=== PATIENT | male | born 1985 | race Caucasian/White ===

== ENCOUNTER 2017-08-23 22:00 | Inpatient (IN) | payer MEDICAID ==
[~2017-08-23] VITALS: Ht 172.7 cm; Wt 68.9 kg
[2017-08-23] MEDS ORDERED: LITH600 PO (22:28)
[2017-08-23 23:55] LABS: BASOPHILS % (AUTO) 0.8 % (0.0-2.0); EOSINOPHILS % (AUTO) 1.6 % (1.0-6.0); HEMATOCRIT 42.9 % (41-53); LYMPHOCYTES # (AUTO) 1.7 K/uL (1.0-4.8); LYMPHOCYTES % (AUTO) 15.7 % (22.0-44.0); MEAN CORPUSCULAR HEMOGLOBIN 30.6 pg (26.0-34.0); MEAN CORPUSCULAR HGB CONC 34.9 G/dL (31.0-37.0); MEAN CORPUSCULAR VOLUME 88 fL (80-100); MONOCYTES # (AUTO) 1.1 K/uL (0.1-1.0); MONOCYTES % (AUTO) 10.2 % (2.0-9.0); NEUTROPHILS % (AUTO) 71.7 % (40.0-70.0); PLATELET COUNT (AUTO) 291 K/uL (150-450); RED BLOOD CELL COUNT(AUTO) 4.89 MIL/uL (4.50-5.90)
[2017-08-24 00:29] LABS: ANION GAP 3 mmol/L (8-16); CALCIUM, TOTAL 9.1 mg/dL (8.8-10.5); CARBON DIOXIDE 30 mmol/L (22-29); CHLORIDE 105 mmol/L (98-107); CREATININE 0.81 mg/dL (0.60-1.30); GLOMERULAR FILTR. RATE CALC > 60 mL/min (>60); GLUCOSE,RANDOM 112 mg/dL (70-110); POTASSIUM 3.4 mmol/L (3.5-5.1); SODIUM SERUM 138 mmol/L (136-145); UREA NITROGEN, BLOOD 8 mg/dL (7-18)
[2017-08-24 00:33] LABS: AMPHET/METH SCREEN,URINE NEGATIVE (NEGATIVE); BARBITURATE SCREEN, URINE NEGATIVE (NEGATIVE); BENZODIAZEPINES SCREEN,URINE NEGATIVE (NEGATIVE); CANNABINOID SCREEN,URINE POSITIVE (NEGATIVE); COCAINE SCREEN,URINE NEGATIVE (NEGATIVE); METHADONE SCREEN, URINE NEGATIVE (NEGATIVE); OPIATE SCREEN,URINE NEGATIVE (NEGATIVE)
[2017-08-24 00:35] LABS: ALANINE AMINOTRANSFERASE 41 U/L (12-78); ALBUMIN 3.8 g/dL (3.4-5.0); ALKALINE PHOSPHATASE 61 U/L (46-116); ASPARTATE AMINOTRANSFERASE 27 U/L (15-37); BILIRUBIN,TOTAL 0.3 mg/dL (0.1-1.0); TOTAL PROTEIN, SERUM 7.2 g/dL (6.4-8.2)
[2017-08-24 00:35] LABS: PHENCYCLIDINE SCREEN,URINE NEGATIVE (NEGATIVE)
[2017-08-24 03:29] VITALS: BP 135/91
[2017-08-24] MEDS: LORazepam 2 MG TABLET PO PRN ×2 (04:07→21:03)
[2017-08-24] MEDS ORDERED: POTASSIUM CHLORIDE 20 MEQ ER TABLET PO ONE (06:30)
[2017-08-24 08:13] VITALS: BP 129/80
[2017-08-24] MEDS ORDERED: NICOTINE POLACRILEX 2 MG LOZENGE PO PRN (10:00)
[2017-08-24] MEDS ORDERED: CloNIDine HCL 0.1 MG TABLET PO PRN (15:15)
[2017-08-24] MEDS ORDERED: ALBUTEROL SULFATE HFA 90 MCG/PUFF 8 GM INHALER IH PRN (15:15)
[2017-08-24] MEDS ORDERED: ONDANSETRON HCL 4 MG TABLET PO PRN (15:15)
[2017-08-24] MEDS ORDERED: LOPERAMIDE HCL 2 MG CAPSULE PO PRN (15:15)
[2017-08-24] MEDS ORDERED: DOCUSATE SODIUM 100 MG CAPSULE PO PRN (15:15)
[2017-08-24] MEDS ORDERED: PETROLATUM,WHITE 71 GM JELLY TP PRN (15:15)
[2017-08-24 16:01] VITALS: BP 126/78
[2017-08-24] MEDS ORDERED: LITHIUM CARBONATE 600 MG CAPSULE PO SCH (17:00)
[2017-08-24] MEDS: ZOLPIDEM TARTRATE 10 MG TABLET PO PRN (21:03)
[2017-08-25 03:00] VITALS: BP 118/65
[2017-08-25] MEDS: LORazepam 2 MG TABLET PO PRN (03:29)
[2017-08-25 08:43] VITALS: BP 100/62
[2017-08-25] MEDS: NICOTINE 14 MG/24 HOUR PATCH TD SCH (08:43)
[2017-08-25 08:45] VITALS: BP 121/78
[2017-08-25] MEDS ORDERED: LITHIUM CARBONATE 300 MG CAPSULE PO SCH (09:00)
[2017-08-25 09:30] VITALS: BP 121/80
[2017-08-25 09:33] LABS: HEMOGLOBIN A1C 5.7 % (4.5-6.2)
[2017-08-25] MEDS: IBUPROFEN 400 MG TABLET PO PRN (09:33)
[2017-08-25 09:41] LABS: LITHIUM 0.43 mmol/L (0.60-1.20)
[2017-08-25 09:53] LABS: CHOL/HDL RATIO 3.2 (4.2-7.3); POTASSIUM 3.6 mmol/L (3.5-5.1); THYROID STIMULATING HORMONE 1.72 uIU/mL (0.36-3.74)
[2017-08-25] MEDS ORDERED: LITHIUM CARBONATE 300 MG CAPSULE PO ONE (11:30)
[2017-08-25] MEDS: LITHIUM CARBONATE 600 MG CAPSULE PO SCH (16:02)
[2017-08-25 16:18] VITALS: BP 130/80
[2017-08-25] MEDS: ZOLPIDEM TARTRATE 10 MG TABLET PO PRN (21:14)
[2017-08-26 05:46] VITALS: BP 139/83
[2017-08-26 08:20] VITALS: BP 133/90
[2017-08-26] MEDS: NICOTINE 14 MG/24 HOUR PATCH TD SCH (08:43)
[2017-08-26] MEDS: LITHIUM CARBONATE 600 MG CAPSULE PO SCH ×2 (08:43→17:11)
[2017-08-26] MEDS: LORazepam 2 MG TABLET PO PRN (15:55)
[2017-08-26 16:02] VITALS: BP 136/80
[2017-08-26] MEDS: ZOLPIDEM TARTRATE 10 MG TABLET PO PRN (22:10)
[2017-08-27 00:52] VITALS: BP 117/61
[2017-08-27] MEDS: LORazepam 2 MG TABLET PO PRN ×3 (00:57→21:18)
[2017-08-27 08:03] VITALS: BP 128/80
[2017-08-27] MEDS: LITHIUM CARBONATE 600 MG CAPSULE PO SCH ×2 (08:08→16:22)
[2017-08-27] MEDS: NICOTINE 14 MG/24 HOUR PATCH TD SCH (08:08)
[2017-08-27 16:12] VITALS: BP 130/82
[2017-08-27] MEDS: ZOLPIDEM TARTRATE 10 MG TABLET PO PRN (22:15)
[2017-08-28 04:40] VITALS: BP 124/88
[2017-08-28] MEDS: NICOTINE 14 MG/24 HOUR PATCH TD SCH ×2 (08:11→14:08)
[2017-08-28] MEDS: LITHIUM CARBONATE 600 MG CAPSULE PO SCH ×2 (08:11→16:02)
[2017-08-28 08:36] VITALS: BP 130/82
[2017-08-28 13:56] VITALS: BP 124/81
[2017-08-28] MEDS: IBUPROFEN 400 MG TABLET PO PRN ×2 (13:56→22:12)
[2017-08-28 16:03] VITALS: BP 133/84
[2017-08-28 22:12] VITALS: BP 128/70
[2017-08-28] MEDS: ZOLPIDEM TARTRATE 10 MG TABLET PO PRN (22:12)
[2017-08-29 04:44] VITALS: BP 134/78
[2017-08-29] MEDS: ACETAMINOPHEN 325 MG TABLET PO PRN (04:57)
[2017-08-29] MEDS: NICOTINE 14 MG/24 HOUR PATCH TD SCH (08:31)
[2017-08-29] MEDS: IBUPROFEN 400 MG TABLET PO PRN ×2 (08:31→16:33)
[2017-08-29] MEDS: LITHIUM CARBONATE 600 MG CAPSULE PO SCH (08:32)
[2017-08-29 08:43] VITALS: BP 130/76
[2017-08-29] MEDS: MAGNESIUM HYDROXIDE SUSPENSION 30 ML UDCUP PO PRN (12:44)
[2017-08-29 16:01] VITALS: BP 124/100
[2017-08-29] MEDS: LITHIUM CARBONATE 300 MG CAPSULE PO SCH (16:02)
[2017-08-29 16:31] VITALS: BP 124/84
[2017-08-29] MEDS: ZOLPIDEM TARTRATE 10 MG TABLET PO PRN (21:26)
[2017-08-30 03:42] VITALS: BP 126/88
[2017-08-30] MEDS: IBUPROFEN 400 MG TABLET PO PRN ×2 (04:32→16:54)
[2017-08-30] MEDS: LITHIUM CARBONATE 600 MG CAPSULE PO SCH (08:51)
[2017-08-30] MEDS: NICOTINE 14 MG/24 HOUR PATCH TD SCH (08:52)
[2017-08-30 09:09] VITALS: BP 130/70
[2017-08-30] MEDS: MAG HYDROX/AL HYDROX/SIMETH ES 30 ML SUSPENSION UDCUP PO PRN (12:51)
[2017-08-30] MEDS: LITHIUM CARBONATE 300 MG CAPSULE PO SCH (16:08)
[2017-08-30 16:29] VITALS: BP 135/89
[2017-08-30 16:54] VITALS: BP 122/76
[2017-08-30] MEDS: ZOLPIDEM TARTRATE 10 MG TABLET PO PRN (20:57)
[2017-08-31 01:04] VITALS: BP 113/99
[2017-08-31] MEDS: IBUPROFEN 400 MG TABLET PO PRN ×2 (04:13→16:06)
[2017-08-31] MEDS: ACETAMINOPHEN 325 MG TABLET PO PRN (06:07)
[2017-08-31 08:05] VITALS: BP 124/88
[2017-08-31] MEDS: LITHIUM CARBONATE 600 MG CAPSULE PO SCH (08:24)
[2017-08-31] MEDS: NICOTINE 14 MG/24 HOUR PATCH TD SCH (08:25)
[2017-08-31 16:00] VITALS: BP 132/84
[2017-08-31 16:06] VITALS: BP 132/84
[2017-08-31] MEDS: LITHIUM CARBONATE 300 MG CAPSULE PO SCH (16:06)
[2017-08-31] MEDS: HALOPERIDOL 5 MG TABLET PO PRN (16:06)
[2017-08-31] MEDS: HALOPERIDOL 5 MG TABLET PO SCH (20:36)
[2017-08-31] MEDS: ZOLPIDEM TARTRATE 10 MG TABLET PO PRN (20:37)
[2017-09-01 01:57] VITALS: BP 120/80
[2017-09-01] MEDS: IBUPROFEN 400 MG TABLET PO PRN ×2 (01:57→10:44)
[2017-09-01 08:15] VITALS: BP 133/86
[2017-09-01] MEDS: LITHIUM CARBONATE 600 MG CAPSULE PO SCH (08:32)
[2017-09-01] MEDS: NICOTINE 14 MG/24 HOUR PATCH TD SCH (08:32)
[2017-09-01] MEDS: HALOPERIDOL 5 MG TABLET PO SCH (08:32)
[2017-09-01] MEDS: MAGNESIUM HYDROXIDE SUSPENSION 30 ML UDCUP PO PRN (10:44)
[2017-09-01 10:45] VITALS: BP 133/66
[2017-09-01 11:45] VITALS: BP 133/66
[2017-09-01 16:13] VITALS: BP 121/86
[2017-09-01] MEDS: ACETAMINOPHEN 325 MG TABLET PO PRN (16:13)
[2017-09-01] MEDS: LITHIUM CARBONATE 300 MG CAPSULE PO SCH (16:13)
[2017-09-01 17:13] VITALS: BP 118/89
[2017-09-01] MEDS: MAG HYDROX/AL HYDROX/SIMETH ES 30 ML SUSPENSION UDCUP PO PRN (19:33)
[2017-09-01] MEDS: ZOLPIDEM TARTRATE 10 MG TABLET PO PRN (20:29)
[2017-09-01] MEDS: DIVALPROEX SODIUM 500 MG ER TABLET PO SCH (21:00)
[2017-09-02] VITALS: BP 139/90
[2017-09-02] MEDS: IBUPROFEN 400 MG TABLET PO PRN (00:03)
[2017-09-02] MEDS: HALOPERIDOL 5 MG TABLET PO PRN (01:03)
[2017-09-02] MEDS: NICOTINE 14 MG/24 HOUR PATCH TD SCH (08:46)
[2017-09-02] MEDS: LITHIUM CARBONATE 600 MG CAPSULE PO SCH (08:46)
[2017-09-02 09:14] LABS: BASOPHILS % (AUTO) 0.7 % (0.0-2.0); EOSINOPHILS % (AUTO) 2.8 % (1.0-6.0); HEMATOCRIT 42.8 % (41-53); HEMOGLOBIN 14.7 g/dL (13.5-17.5); LYMPHOCYTES # (AUTO) 1.9 K/uL (1.0-4.8); LYMPHOCYTES % (AUTO) 22.5 % (22.0-44.0); MEAN CORPUSCULAR HEMOGLOBIN 30.2 pg (26.0-34.0); MEAN CORPUSCULAR HGB CONC 34.3 G/dL (31.0-37.0); MEAN CORPUSCULAR VOLUME 88 fL (80-100); MONOCYTES # (AUTO) 0.7 K/uL (0.1-1.0); MONOCYTES % (AUTO) 8.7 % (2.0-9.0); NEUTROPHILS # (AUTO) 5.4 K/uL (1.8-7.7); NEUTROPHILS % (AUTO) 65.3 % (40.0-70.0); PLATELET COUNT (AUTO) 314 K/uL (150-450); RED BLOOD CELL COUNT(AUTO) 4.86 MIL/uL (4.50-5.90)
[2017-09-02] MEDS ORDERED: DIVALPROEX SODIUM 500 MG ER TABLET PO ONE (10:00)
[2017-09-02] MEDS: MAG HYDROX/AL HYDROX/SIMETH ES 30 ML SUSPENSION UDCUP PO PRN (13:07)
[2017-09-02] MEDS: LITHIUM CARBONATE 300 MG CAPSULE PO SCH (16:41)
[2017-09-02 16:46] VITALS: BP 138/90
[2017-09-02] MEDS: MAGNESIUM HYDROXIDE SUSPENSION 30 ML UDCUP PO PRN (19:50)
[2017-09-02] MEDS: DIVALPROEX SODIUM 500 MG ER TABLET PO SCH (20:00)
[2017-09-02] MEDS: ZOLPIDEM TARTRATE 10 MG TABLET PO PRN (20:29)
[2017-09-03 03:50] VITALS: BP 136/89
[2017-09-03] MEDS: IBUPROFEN 400 MG TABLET PO PRN ×2 (05:40→20:18)
[2017-09-03 08:24] VITALS: BP 124/76
[2017-09-03] MEDS: LITHIUM CARBONATE 600 MG CAPSULE PO SCH (09:12)
[2017-09-03] MEDS: NICOTINE 14 MG/24 HOUR PATCH TD SCH (09:12)
[2017-09-03] MEDS: LORazepam 2 MG TABLET PO PRN ×3 (10:22→21:33)
[2017-09-03] MEDS: ACETAMINOPHEN 325 MG TABLET PO PRN (10:23)
[2017-09-03 10:24] VITALS: BP 124/76
[2017-09-03] MEDS: LITHIUM CARBONATE 300 MG CAPSULE PO SCH (16:04)
[2017-09-03 16:17] VITALS: BP 113/82
[2017-09-03] MEDS: DIVALPROEX SODIUM 500 MG ER TABLET PO SCH (20:05)
[2017-09-03 20:18] VITALS: BP 110/70
[2017-09-03] MEDS: ZOLPIDEM TARTRATE 10 MG TABLET PO PRN (22:13)
[2017-09-04 05:54] VITALS: BP 122/90
[2017-09-04] MEDS: LORazepam 2 MG TABLET PO PRN ×2 (06:33→16:23)
[2017-09-04 08:21] VITALS: BP 130/80
[2017-09-04] MEDS: LITHIUM CARBONATE 600 MG CAPSULE PO SCH (08:47)
[2017-09-04] MEDS: NICOTINE 14 MG/24 HOUR PATCH TD SCH (08:58)
[2017-09-04] MEDS: LITHIUM CARBONATE 300 MG CAPSULE PO SCH (16:23)
[2017-09-04 16:35] VITALS: BP 120/77
[2017-09-04] MEDS: DIVALPROEX SODIUM 500 MG ER TABLET PO SCH (20:26)
[2017-09-04] MEDS: ZOLPIDEM TARTRATE 10 MG TABLET PO PRN (20:26)
[2017-09-04] MEDS: ACETAMINOPHEN 325 MG TABLET PO PRN (22:37)
[2017-09-05] VITALS: BP 125/87
[2017-09-05] MEDS: LORazepam 2 MG TABLET PO PRN ×4 (00:26→20:14)
[2017-09-05 08:00] VITALS: BP 125/76
[2017-09-05] MEDS: NICOTINE 14 MG/24 HOUR PATCH TD SCH (08:17)
[2017-09-05] MEDS: LITHIUM CARBONATE 300 MG CAPSULE PO SCH (08:18)
[2017-09-05] MEDS: LITHIUM CARBONATE 600 MG CAPSULE PO SCH (10:20)
[2017-09-05 16:13] VITALS: BP 124/85
[2017-09-05] MEDS: MAGNESIUM HYDROXIDE SUSPENSION 30 ML UDCUP PO PRN (17:55)
[2017-09-05] MEDS: DIVALPROEX SODIUM 500 MG ER TABLET PO SCH (20:12)
[2017-09-05] MEDS: ZOLPIDEM TARTRATE 10 MG TABLET PO PRN (21:49)
[2017-09-06 02:59] VITALS: BP 122/87
[2017-09-06] MEDS: LITHIUM CARBONATE 600 MG CAPSULE PO SCH (08:01)
[2017-09-06] MEDS: NICOTINE 14 MG/24 HOUR PATCH TD SCH (08:01)
[2017-09-06] MEDS: LORazepam 2 MG TABLET PO PRN ×3 (08:01→20:21)
[2017-09-06 08:19] VITALS: BP 121/75
[2017-09-06 16:01] VITALS: BP 122/80
[2017-09-06] MEDS: LITHIUM CARBONATE 300 MG CAPSULE PO SCH (16:20)
[2017-09-06] MEDS: ACETAMINOPHEN 325 MG TABLET PO PRN (16:25)
[2017-09-06] MEDS: DIVALPROEX SODIUM 500 MG ER TABLET PO SCH (20:10)
[2017-09-06] MEDS: ZOLPIDEM TARTRATE 10 MG TABLET PO PRN (20:49)
[2017-09-07 05:25] VITALS: BP 124/82
[2017-09-07 08:22] VITALS: BP 123/74
[2017-09-07] MEDS: LITHIUM CARBONATE 600 MG CAPSULE PO SCH (08:48)
[2017-09-07] MEDS: NICOTINE 14 MG/24 HOUR PATCH TD SCH (08:49)
[2017-09-07] MEDS: LORazepam 2 MG TABLET PO PRN (12:29)
[2017-09-07 16:01] VITALS: BP 123/84
[2017-09-07] MEDS: LITHIUM CARBONATE 300 MG CAPSULE PO SCH (17:09)
[2017-09-07] MEDS: DIVALPROEX SODIUM 500 MG ER TABLET PO SCH (21:23)
[2017-09-08 00:10] VITALS: BP 123/83
[2017-09-08] MEDS: LORazepam 2 MG TABLET PO PRN (00:18)
[2017-09-08 08:01] VITALS: BP 122/80
[2017-09-08] MEDS ORDERED: DIVA500T52 PO ×2 (08:29→08:41)
[2017-09-08] MEDS ORDERED: LITH300C3 PO ×2 (08:29→08:41)
[2017-09-08] MEDS ORDERED: LITH600 PO (08:29)
[2017-09-08] MEDS: LITHIUM CARBONATE 600 MG CAPSULE PO SCH (08:34)
[2017-09-08] MEDS: NICOTINE 14 MG/24 HOUR PATCH TD SCH (08:35)
== END 2017-09-08 13:15 | disposition home or self-care (01) | DRG 753 ==
LOC: EMS 22:01 → B2S 08-24 00:30
DX: F31.64 Bipolar disorder, current episode mixed, severe, with psychotic features (principal); R45.851 Suicidal ideations; E87.6 Hypokalemia; D72.829 Elevated white blood cell count, unspecified; F17.210 Nicotine dependence, cigarettes, uncomplicated; F12.10 Cannabis abuse, uncomplicated; F41.9 Anxiety disorder, unspecified; Z59.0 Homelessness; Z88.8 Allergy status to other drugs, medicaments and biological substances; Z79.899 Other long term (current) drug therapy
CPT/HCPCS: 83036; 84132; 84443; 87081; 99285; G0480

== ENCOUNTER 2018-07-04 13:17 | Emergency (ER) | payer MEDICAID ==
[~2018-07-04] VITALS: Ht 172.7 cm; Wt 81.8 kg
[~2018-07-04 13:17] MED LIST: DIVA500T52 PO; LITH300C3 PO; LITH600 PO
[2018-07-04 15:05] VITALS: BP 131/85
== END 2018-07-04 15:14 | disposition home or self-care (01) ==
LOC: EMS 13:20
DX: F10.20 Alcohol dependence, uncomplicated (principal); F31.9 Bipolar disorder, unspecified; F17.210 Nicotine dependence, cigarettes, uncomplicated; Z88.8 Allergy status to other drugs, medicaments and biological substances; Y90.9 Presence of alcohol in blood, level not specified

== ENCOUNTER 2021-10-18 10:00 | Emergency (ER) | payer MEDICAID ==
[~2021-10-18] VITALS: Ht 167.6 cm; Wt 70.5 kg
[2021-10-18 12:19] VITALS: BP 120/80
== END 2021-10-18 12:38 | disposition home or self-care (01) ==
LOC: EMS 10:00
DX: S90.821A Blister (nonthermal), right foot, initial encounter (principal); S90.822A Blister (nonthermal), left foot, initial encounter; F31.9 Bipolar disorder, unspecified; F12.90 Cannabis use, unspecified, uncomplicated; F17.210 Nicotine dependence, cigarettes, uncomplicated; Z72.89 Other problems related to lifestyle; X58.XXXA Exposure to other specified factors, initial encounter; Y93.89 Activity, other specified; Y92.89 Other specified places as the place of occurrence of the external cause; Y99.8 Other external cause status; Z88.8 Allergy status to other drugs, medicaments and biological substances
CPT/HCPCS: 99281; Z7502